=== PATIENT | female | born 1985 | race Caucasian/White ===

== ENCOUNTER 2016-03-11 23:16 | Emergency (ER) | payer SELFPAY ==
[~2016-03-11] VITALS: Ht 165.1 cm; Wt 87.0 kg
[~2016-03-11 23:16] MED LIST: MULT-506 PO
[2016-03-11 23:28] VITALS: TEMP 36.8; Ht 165.1 cm; Wt 87.0 kg
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
[2016-03-12] MEDS ORDERED: OXYCODONE/ACETAMINOPHEN 5-325 TAB PO ONE (00:15)
[2016-03-12] MEDS ORDERED: OXYC-57 PO (01:21)
[2016-03-12 01:30] VITALS: BP 138/89; PULSE 76; O2SAT 99
--- NOTE | 2016-03-12 09:17 | DIAGNOSTIC IMAGING REPORT ---
LEFT KNEE 2 VIEWS CLINICAL HISTORY: Fall with left knee pain. FINDINGS: AP and crosstable lateral views of the left knee are obtained. No prior studies are available for comparison at the time of dictation. The skeletal structures are well mineralized. No fracture is seen. The joint spaces of the knee are well-maintained. There is no joint effusion. Mild soft tissue swelling is noted. IMPRESSION: Mild soft tissue swelling with no radiographic evidence of fracture. Electronically signed by: Rupert Augustin M.D. 03/12/2016 9:15 AM Dictated Date/Time: 03/12/2016 9:14 AM
[2016-03-12] MEDS ORDERED: OXYC1TAB3 PO (09:39)
[2016-03-13] MEDS ORDERED: OXYC-57 PO (15:34)
--- NOTE | 2016-03-13 15:40 | EMERGENCY ROOM VISIT NOTE ---
ED Visit Note I was asked by the nursing staff to redo the patient's Percocet prescription. She needed the prescription sent to a different pharmacy. The same number of pills for the Percocet was placed but the prescription was sent to her preferred pharmacy. This was all discussed with the charge nurse and with the initial physician, Dr. Ortega.
== END 2016-03-12 01:36 | disposition home or self-care (01) ==
LOC: C.EDB 23:17 → C.EDC 03-12 01:36
DX: S83.92XA Sprain of unspecified site of left knee, initial encounter (principal); W01.0XXA Fall on same level from slipping, tripping and stumbling without subsequent striking against object, initial encounter; F17.210 Nicotine dependence, cigarettes, uncomplicated; Z83.3 Family history of diabetes mellitus; Z82.49 Family history of ischemic heart disease and other diseases of the circulatory system; Z82.0 Family history of epilepsy and other diseases of the nervous system

== ENCOUNTER 2022-12-12 07:45 | Inpatient (IN) ==
[2022-12-12] MEDS ORDERED: DINOPROSTONE 10 MG INSERT PV ONE (08:29)
[2022-12-12] MEDS ORDERED: OXYTOCIN 30 UNITS/NSS 30 UNITS/500 ML BAG IV PRN (08:29)
[2022-12-12] MEDS ORDERED: LIDOCAINE 1% LOCAL 20 ML VIAL INFIL PRN (08:29)
--- NOTE | 2022-12-12 08:33 | History & Physical Report ---
Date of Service December 12, 2022 Assessment & Plan (1) Gestational diabetes: (2) Obesity: (3) Chronic hypertension during , antepartum: Plan: 36 yo at 39 wks with CHTN, GDMA1, IOL at term VS Afebrile FHR reassuring GBS neg Cervix unfavorable, Plan to admit, monitor, labs, Cervical ripening with Cervidil Admission and Anticipated Discharge Date Admission Date: December 12, 2022 History of Present Illness Primary Care Provider: NO PCP Patient is a 36 yo at 39 wks with h/o CHTN, on Labetalol, GDMA1, Diet controlled, Obesity, here for scheduled IOL Had irregular contractions yesterday but they stopped. No LOF/VB +FM's GBS negative Last growth US was on 11/30 and was WNL Allergies Allergy/AdvReac Type Severity Reaction Status Date / Time Penicillins Allergy Severe hives, Verified 01/14/21 12:54 shortness of breath Home Medications Medication Instructions Recorded Confirmed Type prenat.vits,tanner,[id number] 1 tab PO QAM 01/12/21 12/12/22 History aspirin 81 mg chewable tablet 81 mg PO DAILY 12/12/22 12/12/22 History labetalol 100 mg tablet 100 mg PO BID 12/12/22 12/12/22 History vitamin B12 0.5 mg-folic acid 1 mg 1 tab PO DAILY 12/12/22 12/12/22 History tablet Patient History Medical History Gestational diabetes Obesity Surgical History History of dilatation and curettage History of tooth extraction all upper teeth removed Family History Other No family history of adverse response to anesthesia Social History Smoking Status: Former smoker Cigarettes Per Day: 3; Second Hand Exposure: No; Do You Dip or Chew Tobacco: No; Hx Alcohol Use: Yes (prior to was drinking) Alcohol type: other Hx Substance Use: No Preferred Language: Luxembourgish Communication Ability: Effective Fire Alarm Dispatcher Required: No Beliefs That Will Affect Care: None marital status: Current Living Situation: Spouse and Family Current Living Situation Comment: Lives with and daughter - 12 yo; 3 cats Other Information That Helps Us Care for You: No Feels Safe at Home: Yes Assistive Devices: None OB History FT in 2009 SAB in 2020 and 2 in 2021 COPYWRITER History No h/o STD's Review of Systems as per Subjective / HPI Physical Exam Constitutional: WD/WN, vitals as above Gastrointestinal (Abdomen): normal bowel sounds, soft, nontender, no hepatosplenomegaly (gravid) Genitourinary: normal external appearance OB Exam Abdomen: + vertex (confirmed with US) Manual OB Exam: + cervical dilation 1 cm, + cervical effacement 20% and + station high (POSTERIOR) OB Exam Monitor Tracing: + external uterine monitor used and + category I Results & Data Vital Signs (Past 12 Hours) Vital Signs Temp Pulse Resp BP 12/12/22 08:05 36.9 C 74 20 133/72 12/12/22 08:03 74 133/72
[2022-12-12 09:11] LABS: Hematocrit (blood only) 34.1 % (37.0-47.0); Hemoglobin 11.7 g/dl (12.0-16.0); Mean Corpuscular Hemoglobin 31.9 pg (25.0-34.0); Mean Corpuscular Hgb Conc 34.3 g/dL (32.0-36.0); Mean Corpuscular Volume 92.9 fL (80.0-100.0); Mean Platelet Volume 10.5 fL (9.4-12.4); Platelet Count 214 K/uL (130-400); RDW Coefficient of Variation 13.7 % (11.5-14.5); RDW Standard Deviation 46.6 fL (36.4-46.3); Red Blood Count 3.67 M/uL (4.20-5.40); White Blood Count 10.12 K/ul (4.8-10.8)
[2022-12-12 09:25] LABS: Albumin Level 3.3 gm/dl (3.4-5.0); BUN Creatinine Ratio 18.5 (10-20); Bilirubin,Total 0.3 mg/dl (0.2-1.0); Calcium 8.6 mg/dl (8.6-10.3); Est GFR (African American) 141.7 ml/min; Est GFR (Non-African American) 122.3 ml/min; Globulin 3.2 gm/dl (2.5-4.0); Potassium 3.8 mmol/L (3.5-5.1); Total Protein 6.5 gm/dl (6.0-8.3)
[2022-12-12] MEDS: CYANOCOBALAMIN (B-12) 500 MCG TABLET PO SCH (09:41)
[2022-12-12] MEDS: FOLIC ACID 1 MG TAB PO SCH (09:41)
[2022-12-12] MEDS: LABETALOL HCL 100 MG TAB PO SCH ×2 (09:55→20:51)
[2022-12-12] MEDS: PRENATAL VITAMIN 1 TAB PO SCH (09:55)
[2022-12-12] MEDS ORDERED: CALCIUM CARBONATE 500 MG CHEWABLE TAB ONE (14:43)
[2022-12-12] MEDS: LACTATED RINGER'S 1,000 ML IV PRN ×2 (18:30→22:01)
[2022-12-12] MEDS: BUTORPHANOL TARTRATE 1 MG/ML VIAL IV PRN ×2 (18:38→21:22)
[2022-12-12] MEDS ORDERED: CALCIUM CARBONATE 500 MG CHEWABLE TAB PO PRN (20:00)
--- NOTE | 2022-12-12 21:54 | Obstetrical Progress Note ---
Date of Service December 12, 2022 Assessment & Plan Admission and Anticipated Discharge Date Admission Date: December 12, 2022 Subjective Patient is reevaluated. She has been feeling contractions since 6:30 PM. No leakage of fluid or vaginal bleeding. Cervidil was removed cervix was still high checked by her nurse. Patient is disappointed that she has not changed despite she had too many contractions. She received Stadol 1 mg IV x2 and helped for pain. I checked her cervix and it is still posterior, 1 to 2 cm dilated, 30% effaced, softer than this morning, head is at -4 station. I was unable to feel the head in the morning and vertex was confirmed by bedside ultrasound. Discussed the findings induction of labor may take a day or 2 with ripening of cervix and starting labor. We discussed options of Cobb balloon mechanical dilatation with IV oxytocin. Patient desires to move around and does not want to be on oxytocin this early and needed to be in bed all the time. We discussed option of Cobb balloon and p.o. Cytotec and she accepted that. Plan to place Cobb balloon and start p.o. Cytotec once the contractions spaced out. heart rate category 1. Continue to monitor, All questions were answered. Results & Data Vital Signs (Past 12 Hours) Vital Signs Temp Pulse Resp BP 12/12/22 19:06 36.7 C 18 12/12/22 20:50 64 130/72 12/12/22 19:06 66 126/60 12/12/22 18:32 71 124/74 12/12/22 14:39 36.8 C 64 20 108/64 12/12/22 11:35 36.7 C 83 18 122/75
--- NOTE | 2022-12-12 22:13 | Obstetrical Progress Note ---
Date of Service December 12, 2022 Assessment & Plan Admission and Anticipated Discharge Date Admission Date: December 12, 2022 Subjective Patient placed in dorsal lithotomy position. Speculum was placed in the vagina and cervix was visualized. Cobb cath was inserted into the cervix and balloon was inflated, balloon would not stay inside and will come out. Unable to try again due to patient discomfort and patient declines to proceed with follow-up on insertion. She desires to take p.o. Cytotec for the rest of the night. heart rate category 1, Contractions spaced out to every 6 to 7 minutes, not painful anymore, Plan to continue with p.o. Cytotec and IV Stadol for pain and then epidural when regular contractions and cervical change starts, Oxytocin AROM when able, Continue to monitor. Results & Data Vital Signs (Past 12 Hours) Vital Signs Temp Pulse Resp BP 12/12/22 19:06 36.7 C 18 12/12/22 20:50 64 130/72 12/12/22 19:06 66 126/60 12/12/22 18:32 71 124/74 12/12/22 14:39 36.8 C 64 20 108/64 12/12/22 11:35 36.7 C 83 18 122/75
[2022-12-12] MEDS: miSOPROStoL 50 MCG TAB PO SCH (22:30)
[2022-12-13] MEDS ORDERED: OXYTOCIN 30 UNITS/NSS 30 UNITS/500 ML BAG IV PRN (00:58)
[2022-12-13] MEDS: miSOPROStoL 50 MCG TAB PO SCH ×4 (03:55→14:09)
[2022-12-13] MEDS: CYANOCOBALAMIN (B-12) 500 MCG TABLET PO SCH (08:58)
[2022-12-13] MEDS: LABETALOL HCL 100 MG TAB PO SCH ×2 (08:58→22:47)
[2022-12-13] MEDS: FOLIC ACID 1 MG TAB PO SCH (08:58)
--- NOTE | 2022-12-13 09:58 | Labor Progress Brief Note ---
Date of Service December 13, 2022 Assessment & Plan Admission and Anticipated Discharge Date Admission Date: December 12, 2022 Physical Exam Genitourinary: Speculum/Bimanual Exam: normal bimanual exam OB Exam Abdomen: + fundal height and + vertex Manual OB Exam: + cervical dilation fingertip, + cervical effacement 50% and + station high Cobb inserted into cervix with 35 ml. saline without difficulty Results & Data Vital Signs (Past 12 Hours) Vital Signs Temp Pulse Resp BP 12/13/22 07:35 36.8 C 62 20 122/70 12/13/22 07:40 62 122/70 12/13/22 04:02 68 134/62 12/12/22 23:01 36.7 C 62 18 131/63
[2022-12-13] MEDS: BUTORPHANOL TARTRATE 1 MG/ML VIAL IV PRN (11:29)
[2022-12-13] MEDS: PRENATAL VITAMIN 1 TAB PO SCH (11:38)
[2022-12-13] MEDS: LACTATED RINGER'S 1,000 ML IV PRN ×3 (11:52→21:02)
[2022-12-13] MEDS ORDERED: LIDOCAINE 2%/EPINEPHRINE 1:200,000 20 ML PF ONE (13:18)
[2022-12-13] MEDS ORDERED: ePHEDrine sulfate 50 MG/ML AMP ONE (13:18)
[2022-12-13] MEDS ORDERED: fentaNYL citrate PF 100 MCG/2 ML VIAL ONE (13:18)
[2022-12-13] MEDS ORDERED: SODIUM CHLORIDE 0.9% PF INJ 10 ML VIAL ONE (13:18)
[2022-12-13] MEDS ORDERED: BUPIVACAINE 0.25% PF 30 ML VIAL ONE (13:18)
[2022-12-13] MEDS ORDERED: fentaNYL 2MCG/ML ROPIVACAINE 1.25MG/ML 100 ML BAG EPI ONE (13:19)
--- NOTE | 2022-12-13 13:46 | Anesthesiology Consultation ---
Date of Service December 13, 2022 Assessment & Plan (1) Encounter for pre-operative examination: Chart Review Chart Review: Acceptable Risk for Labor Epidural History Height/Weight Height: 5 ft 7 in Weight: 110.223 kg Allergies Allergy/AdvReac Type Severity Reaction Status Date / Time Penicillins Allergy Severe hives, Verified 01/14/21 12:54 shortness of breath pertussis vaccine,adsorbed Allergy Severe Anaphylaxis Verified 12/12/22 09:09 tetanus and diphtheria Allergy Severe Anaphylaxis Verified 12/12/22 09:09 toxoids Medications Home Medications Medication Instructions Recorded Confirmed Last Taken prenat.vits,tanner,[id number]-[id number]-[id number] 1 tab PO QAM 01/12/21 12/12/22 12/12/22 aspirin 81 mg chewable tablet 81 mg PO DAILY 12/12/22 12/12/22 12/12/22 labetalol 100 mg tablet 100 mg PO BID 12/12/22 12/12/22 12/12/22 vitamin B12 0.5 mg-folic acid 1 mg 1 tab PO DAILY 12/12/22 12/12/22 12/11/22 tablet Active Medications Generic Name Dose Route Start Last Admin Trade Name Freq PRN Reason Stop Dose Admin Butorphanol Tartrate 1 mg 12/12/22 09:43 12/13/22 11:29 Butorphanol Tartrate 1 Mg/Ml Vial IV 01/11/23 09:42 1 mg Q3HWA PRN Administration Pain Cyanocobalamin 500 mcg 12/12/22 09:00 12/13/22 08:58 Cyanocobalamin (B-12) 500 Mcg Tablet PO 01/11/23 08:59 500 mcg DAILY CAT Administration Protocol Folic Acid 1 mg 12/12/22 09:00 12/13/22 08:58 Folic Acid 1 Mg Tab PO 01/11/23 08:59 1 mg DAILY CAT Administration Protocol Lactated Ringer's 1,000 mls @ 150 mls/hr 12/12/22 08:29 12/13/22 13:20 Lr IV 12/14/22 08:28 999 mls/hr .Q6H40M PRN Infusion L&D Protocol Protocol Oxytocin 30 units in 500 mls @ 6 mls/hr 12/13/22 00:58 12/13/22 13:00 Pitocin IV 12/15/22 00:57 0.36 units/hr .Q24H PRN 6 mls/hr Labor Induction/Augmentation Titration Protocol 0.36 UNITS/HR Labetalol HCl 100 mg 12/12/22 09:00 12/13/22 08:58 Labetalol Hcl 100 Mg Tab PO 01/11/23 08:59 100 mg BID CAT Administration Misoprostol 50 mcg 12/12/22 22:30 12/13/22 11:38 Misoprostol 50 Mcg Tab PO 01/11/23 22:29 Not Given Q4 CAT Prenat Multivit/Matchbook Assembler/Iron/Folic Ac 1 tab 12/12/22 09:00 12/13/22 11:38 Vitamin 1 Tab PO 01/11/23 08:59 Not Given QAM CAT Past Medical History Medical History Chronic hypertension Gestational diabetes Obesity Exercise / Class Metabolic Activity II 4-5 Yardwork/Stairs/Walk up hill Past Family History Family History Other No family history of adverse response to anesthesia Past Surgical History Surgical History History of dilatation and curettage History of tooth extraction all upper teeth removed Social History Smoking Status: Former smoker tobacco type: cigarettes Smoking cigarettes per day: 3 Do You Dip or Chew Tobacco: No Hx Alcohol Use: Yes (prior to was drinking) Alcohol type: other alcohol intake frequency: a few times a month Hx Substance Use: No substance use type: does not use Physical Exam Vital Signs Last Vital Signs Temp 36.6 C 12/13/22 13:00 Pulse 65 12/13/22 12:26 Resp 20 12/13/22 13:00 BP 113/56 L 12/13/22 12:26 Testing Laboratory Results 12/12/22 08:47 12/12/22 08:47 Blood Type A Positive 12/12/22 08:47 Antibody Screen NEGATIVE 12/12/22 08:47
[2022-12-13] MEDS ORDERED: BUPIVACAINE 0.25% PF 30 ML VIAL EPI PRN (14:24)
[2022-12-13] MEDS ORDERED: ROPIVACAINE 0.5% PF 5 MG/ML 20 ML VIAL EPI PRN (14:24)
[2022-12-13] MEDS ORDERED: fentaNYL citrate PF 100 MCG/2 ML VIAL EPI PRN (14:24)
[2022-12-13] MEDS ORDERED: LIDOCAINE 2% MPF LOCAL 5 ML VIAL EPI PRN (14:24)
[2022-12-13] MEDS ORDERED: NALOXONE HCL 0.4 MG/1 ML VIAL/CARP IV PRN (14:24)
[2022-12-13] MEDS ORDERED: SODIUM CHLORIDE 0.9% PF INJ 10 ML VIAL EPI PRN (14:24)
[2022-12-13] MEDS ORDERED: ePHEDrine sulfate 50 MG/ML AMP IV PRN (14:24)
[2022-12-13] MEDS ORDERED: ONDANSETRON INJ 2 MG/ML 2 ML VIAL IV PRN (14:24)
[2022-12-13] MEDS ORDERED: LIDOCAINE 2%/EPINEPHRINE 1:200,000 20 ML PF EPI STA (14:24)
[2022-12-13] MEDS ORDERED: NALOXONE HCL 1 MG in SODIUM CHLORIDE 0.9% 1,000 ML IV PRN (14:24)
[2022-12-13] MEDS ORDERED: BUPIVACAINE 0.25% PF 30 ML VIAL EPI STA (14:24)
[2022-12-13] MEDS ORDERED: fentaNYL 2MCG/ML ROPIVACAINE 1.25MG/ML 100 ML BAG EPI PRN (14:24)
[2022-12-13] MEDS ORDERED: fentaNYL citrate PF 100 MCG/2 ML VIAL EPI STA (14:24)
[2022-12-13] MEDS ORDERED: SODIUM CHLORIDE 0.9% PF INJ 10 ML VIAL EPI STA (14:24)
--- NOTE | 2022-12-13 18:26 | Labor Progress Brief Note ---
Date of Service December 13, 2022 Assessment & Plan Admission and Anticipated Discharge Date Admission Date: December 12, 2022 Physical Exam Genitourinary: Manual OB Exam: + cervical dilation 4 cm, + cervical effacement 50% and 60%, + station high and + amniotic fluid clear OB Exam Monitor Tracing: + external FHT monitor used, + external uterine monitor used, + category I and + normal FHT variability AROM of forebag with Amni-hook clear fluid Results & Data Vital Signs (Past 12 Hours) Vital Signs Temp Pulse Resp BP Pulse Ox 12/13/22 07:35 36.8 C 62 20 122/70 12/13/22 18:22 64 98 12/13/22 18:19 59 L 126/76 12/13/22 18:17 55 L 98 12/13/22 18:12 54 L 98 12/13/22 18:07 50 L 98 12/13/22 18:04 54 L 115/66 12/13/22 18:02 53 L 97 12/13/22 17:57 52 L 97 12/13/22 17:52 53 L 97 12/13/22 17:49 52 L 124/67 12/13/22 17:47 57 L 97 12/13/22 17:42 51 L 98 12/13/22 17:37 55 L 99 12/13/22 17:35 52 L 125/63 12/13/22 17:32 54 L 97 12/13/22 17:27 54 L 97 12/13/22 17:22 53 L 97 12/13/22 17:20 54 L 127/62 12/13/22 17:17 55 L 97 12/13/22 17:12 55 L 96 12/13/22 17:07 54 L 98 12/13/22 17:04 56 L 115/58 L 12/13/22 17:02 54 L 97 12/13/22 16:57 58 L 97 12/13/22 16:52 55 L 97 12/13/22 16:50 53 L 120/56 L 12/13/22 16:47 61 97 12/13/22 16:42 66 97 12/13/22 16:37 55 L 97 12/13/22 16:34 52 L 130/71 12/13/22 16:32 51 L 97 12/13/22 16:27 60 98 12/13/22 16:22 52 L 97 12/13/22 16:19 53 L 129/65 12/13/22 16:17 58 L 97 12/13/22 16:12 53 L 97 12/13/22 16:07 54 L 97 12/13/22 16:05 59 L 115/56 L 12/13/22 16:02 62 98 12/13/22 15:57 70 97 12/13/22 15:52 56 L 94 12/13/22 15:50 55 L 136/68 12/13/22 15:47 56 L 95 12/13/22 15:42 51 L 95 12/13/22 15:40 56 L 94 12/13/22 15:37 54 L 95 12/13/22 15:35 56 L 126/67 12/13/22 15:32 55 L 96 12/13/22 15:27 53 L 18 95 12/13/22 15:00 20 12/13/22 15:22 54 L 95 12/13/22 15:19 54 L 125/68 12/13/22 15:17 55 L 20 95 12/13/22 15:12 61 96 12/13/22 15:07 53 L 96 12/13/22 15:05 56 L 128/64 12/13/22 15:02 55 L 96 12/13/22 14:57 54 L 96 12/13/22 14:52 52 L 95 12/13/22 14:48 54 L 129/71 12/13/22 14:47 54 L 96 12/13/22 14:45 54 L 18 118/72 12/13/22 14:42 54 L 18 96 12/13/22 14:39 54 L 120/76 12/13/22 14:37 62 18 97 12/13/22 14:33 56 L 115/67 12/13/22 14:32 54 L 97 12/13/22 14:31 55 L 18 126/75 12/13/22 14:29 54 L 131/80 12/13/22 14:27 96 12/13/22 14:27 54 L 12/13/22 14:27 52 L 131/82 12/13/22 14:25 56 L 128/77 12/13/22 14:22 55 L 97 12/13/22 14:17 61 98 12/13/22 14:12 66 99 10/18/23 14:11 64 91 12/13/22 14:07 60 99 12/13/22 13:57 67 133/70 12/13/22 13:00 20 12/13/22 13:00 36.6 C 20 12/13/22 12:26 65 113/56 L 12/13/22 11:25 61 125/74 12/13/22 10:06 64 133/70 12/13/22 07:40 62 122/70
[2022-12-13] MEDS ORDERED: SODIUM CHLORIDE 0.9% 250 ML IV PRN (19:50)
--- NOTE | 2022-12-13 22:29 | Labor Progress Brief Note ---
Date of Service December 13, 2022 Assessment & Plan Admission and Anticipated Discharge Date Admission Date: December 12, 2022 Physical Exam Genitourinary: Manual OB Exam: + cervical dilation 6 cm and 7 cm, + cervical effacement 90% and + station -1 OB Exam Monitor Tracing: + external FHT monitor used, + external uterine monitor used, + category I and + normal FHT variability Results & Data Vital Signs (Past 12 Hours) Vital Signs Temp Pulse Resp BP Pulse Ox 12/13/22 19:20 36.9 C 18 12/13/22 22:27 58 L 98 12/13/22 22:22 66 97 12/13/22 22:17 63 98 12/13/22 22:12 62 98 12/13/22 22:07 65 97 12/13/22 22:02 71 97 12/13/22 22:01 62 119/63 12/13/22 21:57 61 97 12/13/22 21:54 63 118/59 L 12/13/22 21:52 61 97 12/13/22 21:47 69 97 12/13/22 21:42 57 L 96 12/13/22 21:37 58 L 97 12/13/22 21:32 72 97 12/13/22 21:27 70 97 12/13/22 21:22 55 L 96 12/13/22 21:19 56 L 116/68 12/13/22 21:17 58 L 98 12/13/22 21:12 59 L 97 12/13/22 21:07 62 98 12/13/22 21:02 57 L 110/65 97 12/13/22 20:57 56 L 98 12/13/22 20:52 55 L 98 12/13/22 20:47 57 L 98 12/13/22 20:45 53 L 113/60 12/13/22 20:43 18 12/13/22 20:43 36.8 C 18 12/13/22 20:42 52 L 98 12/13/22 20:37 52 L 99 12/13/22 20:32 56 L 99 12/13/22 20:27 65 99 12/13/22 20:22 60 98 12/13/22 20:17 56 L 98 12/13/22 20:12 61 98 12/13/22 20:11 59 L 135/65 12/13/22 20:07 56 L 99 12/13/22 20:02 63 100 12/13/22 19:57 56 L 98 12/13/22 19:52 53 L 97 12/13/22 19:47 66 98 12/13/22 19:42 52 L 97 12/13/22 19:37 58 L 97 12/13/22 19:32 97 12/13/22 19:32 63 12/13/22 19:32 58 L 136/69 12/13/22 19:27 52 L 98 12/13/22 19:22 53 L 98 12/13/22 19:17 56 L 97 12/13/22 19:12 63 100 12/13/22 19:07 64 98 12/13/22 19:05 56 L 130/63 12/13/22 19:02 60 98 12/13/22 18:57 59 L 98 12/13/22 18:52 55 L 98 12/13/22 18:49 53 L 116/62 12/13/22 18:47 57 L 18 98 12/13/22 18:42 55 L 98 12/13/22 18:37 55 L 98 12/13/22 18:34 54 L 119/65 12/13/22 18:32 56 L 98 12/13/22 18:27 60 99 12/13/22 18:22 64 98 12/13/22 18:19 59 L 126/76 12/13/22 18:17 55 L 98 12/13/22 18:12 54 L 98 12/13/22 18:07 50 L 98 12/13/22 18:04 54 L 115/66 12/13/22 18:02 53 L 97 12/13/22 17:57 52 L 97 12/13/22 17:52 53 L 97 12/13/22 17:49 52 L 124/67 12/13/22 17:47 36.7 C 57 L 18 97 12/13/22 17:42 51 L 98 12/13/22 17:37 55 L 99 12/13/22 17:35 52 L 125/63 12/13/22 17:32 54 L 97 12/13/22 17:27 54 L 97 12/13/22 17:22 53 L 97 12/13/22 17:20 54 L 127/62 12/13/22 17:17 55 L 97 12/13/22 17:12 55 L 96 12/13/22 17:07 54 L 98 12/13/22 17:04 56 L 115/58 L 12/13/22 17:02 54 L 97 12/13/22 16:57 58 L 97 12/13/22 16:52 55 L 97 12/13/22 16:50 53 L 120/56 L 12/13/22 16:47 61 18 97 12/13/22 16:42 66 97 12/13/22 16:37 55 L 97 12/13/22 16:34 52 L 130/71 12/13/22 16:32 51 L 97 12/13/22 16:27 60 98 12/13/22 16:22 52 L 97 12/13/22 16:19 53 L 129/65 12/13/22 16:17 58 L 97 12/13/22 16:12 53 L 97 12/13/22 16:07 54 L 97 12/13/22 16:05 59 L 115/56 L 12/13/22 16:02 62 98 12/13/22 15:57 70 97 12/13/22 15:52 56 L 94 12/13/22 15:50 36.6 C 55 L 18 136/68 12/13/22 15:47 56 L 95 12/13/22 15:42 51 L 95 12/13/22 15:40 56 L 94 12/13/22 15:37 54 L 95 12/13/22 15:35 56 L 126/67 12/13/22 15:32 55 L 96 12/13/22 15:27 53 L 18 95 12/13/22 15:00 20 12/13/22 15:22 54 L 95 12/13/22 15:19 54 L 125/68 12/13/22 15:17 55 L 20 95 12/13/22 15:12 61 96 12/13/22 15:07 53 L 96 12/13/22 15:05 56 L 128/64 12/13/22 15:02 55 L 96 12/13/22 14:57 54 L 96 12/13/22 14:52 52 L 95 12/13/22 14:48 54 L 129/71 12/13/22 14:47 54 L 96 12/13/22 14:45 54 L 18 118/72 12/13/22 14:42 54 L 18 96 12/13/22 14:39 54 L 120/76 12/13/22 14:37 62 18 97 12/13/22 14:33 56 L 115/67 12/13/22 14:32 54 L 97 12/13/22 14:31 55 L 18 126/75 12/13/22 14:29 54 L 131/80 12/13/22 14:27 96 12/13/22 14:27 54 L 12/13/22 14:27 52 L 131/82 12/13/22 14:25 56 L 128/77 12/13/22 14:22 55 L 97 12/13/22 14:17 61 98 12/13/22 14:12 66 99 12/13/22 14:11 64 91 12/13/22 14:07 60 99 12/13/22 13:57 67 133/70 12/13/22 13:00 20 12/13/22 13:00 36.6 C 20 12/13/22 12:26 65 113/56 L 12/13/22 11:25 61 125/74
[2022-12-14] MEDS ORDERED: HYDROCORTISONE ACETATE 25 MG SUPP PR PRN (00:19)
[2022-12-14] MEDS ORDERED: bisacodyL 10 MG SUPP PR PRN (00:19)
[2022-12-14] MEDS ORDERED: DIPHTHERIA/TETANUS/PERTUSSIS Vaccine (Tdap, Age 7+yrs) 0.5mL SYR/VL IM ONE (00:19)
[2022-12-14] MEDS ORDERED: ACETAMINOPHEN 325 MG TAB PO PRN (00:19)
[2022-12-14] MEDS ORDERED: BENZOCAINE 20% SPRY 85 APPLN/85 GM CAN EXT PRN (00:19)
[2022-12-14] MEDS ORDERED: OXYTOCIN 30 UNITS/NSS 30 UNITS/500 ML BAG IV PRN (00:19)
[2022-12-14] MEDS ORDERED: DOCUSATE SODIUM 100 MG CAP PO ONE (00:24)
--- NOTE | 2022-12-14 00:24 | Delivery Summary ---
Vaginal Delivery Summary Date of Service December 14, 2022 Vaginal Delivery Summary live male NHI over intact perineum with nuchal cord x2 reduced at delivery of head. Delayed cord clamping followed by cord blood and spontaneous delivery of intact placenta. No tears. EBL 100 ml. Final sponge and instrument count are correct. Mom and baby stable.
[2022-12-14] MEDS: IBUPROFEN 600 MG TAB PO PRN ×5 (01:02→23:53)
[2022-12-14] MEDS ORDERED: METHYLERGONOVINE MALEATE 0.2 MG/ML AMP IM STA (01:59)
[2022-12-14] MEDS: miSOPROStoL 50 MCG TAB PO SCH (05:07)
--- NOTE | 2022-12-14 07:03 | Anesthesia Procedure Note ---
Date of Service December 14, 2022 Anesthesia Post Epidural Note Vital Signs Vital Signs: Temp Pulse Resp BP Pulse Ox 98.1 F 65 18 144/63 H 94 12/13/22 22:49 12/14/22 02:54 12/13/22 22:49 12/14/22 02:54 12/14/22 02:52 Pain Intensity Abdomen: Pain Intensity: 8 Notes Mental Status: alert / awake / arousable and participated in evaluation Nausea / Vomiting: adequately controlled Pain: adequately controlled Airway Patency, RR, SpO2: stable & adequate BP & HR: stable & adequate Hydration State: stable & adequate Neuraxial Anesthesia: was administered and sensory block is resolving Anesthetic Complications: no major complications apparent and Pt Satisfied with anesthetic care Epidural: Removed without complications and With tip intact
[2022-12-14] MEDS: PRENATAL VITAMIN 1 TAB PO SCH (08:41)
[2022-12-14] MEDS: DOCUSATE SODIUM 100 MG CAP PO SCH ×2 (08:41→20:46)
[2022-12-14] MEDS: FERROUS SULFATE 325 MG TAB PO SCH (08:41)
[2022-12-14] MEDS ORDERED: DOCUSATE SODIUM 100 MG CAP PO SCH (09:00)
[2022-12-14] MEDS: LABETALOL HCL 100 MG TAB PO SCH ×2 (10:13→20:19)
--- NOTE | 2022-12-14 16:42 | Obstetrical Progress Note ---
Date of Service December 14, 2022 Assessment & Plan Admission and Anticipated Discharge Date Admission Date: December 12, 2022 Subjective Patient is seen and examined. She felt feverish with chills. Temp was 37.7 C Ambulating without dizziness Voiding without difficulty Tolerating regular diet with out N&V Bleeding is minimal No fever/ chills/ CP/ SOB/ N&V/ Leg pain Breast feeding without problems Vital Signs Temp Pulse Resp BP O2 Del Method 12/14/22 16:20 37.7 C H 12/14/22 15:04 37.4 C 84 16 133/70 Room Air 12/14/22 13:10 36.9 C 70 16 132/82 Room Air 12/14/22 07:30 36.7 C 60 16 142/80 H Room Air CBC ordered, pending PE: General: Alert, orientedx3, NAD Abd: soft, NT, fundus firm, tender ?, below Umbilicus Perineum intact, Lochia rubra minimal Ext; NT, BL edema on dorsum of feet, Homans sign neg/ neg AP: 36 yo s/p , ppd# 0 after IOL for 2 days VSS low grade temp with symptom of chills, otherwise, doing well Run CBC, Lactate, Baby is doing well Continue to monitor All questions were answered Results & Data Vital Signs (Past 12 Hours) Vital Signs Temp Pulse Resp BP O2 Del Method 12/14/22 16:20 37.7 C H 12/14/22 15:04 37.4 C 84 16 133/70 Room Air 12/14/22 13:10 36.9 C 70 16 132/82 Room Air 12/14/22 07:30 36.7 C 60 16 142/80 H Room Air
[2022-12-14 16:57] LABS: Basophils # (auto) 0.01 K/uL (0.00-0.20); Basophils % (auto) 0.1 %; Eosinophils # (auto) 0.01 K/uL (0.00-0.50); Eosinophils % (auto) 0.1 %; Hematocrit (blood only) 32.8 % (37.0-47.0); Hemoglobin 10.9 g/dl (12.0-16.0); Immature Granulocytes # (auto) 0.05 K/uL (0.01-0.20); Immature Granulocytes % (auto) 0.5 %; Lymphocytes # (auto) 0.95 K/uL (1.20-3.40); Lymphocytes % (auto) 9.6 %; Mean Corpuscular Hemoglobin 31.8 pg (25.0-34.0); Mean Corpuscular Hgb Conc 33.2 g/dL (32.0-36.0); Mean Corpuscular Volume 95.6 fL (80.0-100.0); Mean Platelet Volume 10.6 fL (9.4-12.4); Monocytes # (auto) 0.39 K/uL (0.11-0.59); Monocytes % (auto) 3.9 %; Neutrophils % (auto) 85.8 %; Platelet Count 170 K/uL (130-400); RDW Coefficient of Variation 13.6 % (11.5-14.5); Red Blood Count 3.43 M/uL (4.20-5.40); White Blood Count 9.91 K/ul (4.8-10.8)
--- NOTE | 2022-12-14 23:32 | Obstetrical Progress Note ---
Date of Service December 14, 2022 Assessment & Plan Admission and Anticipated Discharge Date Admission Date: December 12, 2022 Subjective She has been afebrile Labs WNL Lab Results 12/12/22 12/12/22 12/12/22 Range/Units 08:47 08:47 08:47 WBC 10.12 (4.8-10.8) K/ul RBC 3.67 L (4.20-5.40) M/uL Hgb 11.7 L (12.0-16.0) g/dl Hct 34.1 L (37.0-47.0) % MCV 92.9 (80.0-100.0) fL MCH 31.9 (25.0-34.0) pg MCHC 34.3 (32.0-36.0) g/dL RDW Std Deviation 46.6 H (36.4-46.3) fL RDW Coeff of Donell 13.7 (11.5-14.5) % Plt Count 214 (130-400) K/uL MPV 10.5 (9.4-12.4) fL Immature Gran % (Auto) % Neut % (Auto) % Lymph % (Auto) % [place] % (Auto) % Eos % (Auto) % Baso % (Auto) % Neut # (Auto) (1.40-6.50) K/uL Lymph # (Auto) (1.20-3.40) K/uL [place] # (Auto) (0.11-0.59) K/uL Eos # (Auto) (0.00-0.50) K/uL Baso # (Auto) (0.00-0.20) K/uL Immature Gran # (Auto) (0.01-0.20) K/uL Sodium 135 L (136-145) mmol/L Potassium 3.8 (3.5-5.1) mmol/L Chloride 107 (98-107) mmol/L Carbon Dioxide 21 (21-32) mmol/L Anion Gap 7 (3-11) BUN 10 (6-23) mg/dl Creatinine 0.54 L (0.6-1.2) mg/dl Est Cr Clr Drug Dosing 186.0 ml/min Est GFR ( Amer) 141.7 ml/min Est GFR (Non-Af Amer) 122.3 ml/min BUN/Creatinine Ratio 18.5 (10-20) Glucose 89 (70-99(Fasting)) mg/dl POC Glucose (70-99) mg/dl Lactate (0.4-2.0) mmol/L Calcium 8.6 (8.6-10.3) mg/dl Total Bilirubin 0.3 (0.2-1.0) mg/dl AST 13 (13-39) U/L ALT 12 (7-52) U/L Alkaline Phosphatase 107 H (34-104) U/L Total Protein 6.5 (6.0-8.3) gm/dl Albumin 3.3 L (3.4-5.0) gm/dl Globulin 3.2 (2.5-4.0) gm/dl Albumin/Globulin Ratio 1.0 (0.9-2) Blood Type A Positive Antibody Screen NEGATIVE 12/12/22 12/12/22 12/12/22 Range/Units 12:16 16:48 20:54 WBC (4.8-10.8) K/ul RBC (4.20-5.40) M/uL Hgb (12.0-16.0) g/dl Hct (37.0-47.0) % MCV (80.0-100.0) fL MCH (25.0-34.0) pg MCHC (32.0-36.0) g/dL RDW Std Deviation (36.4-46.3) fL RDW Coeff of Donell (11.5-14.5) % Plt Count (130-400) K/uL MPV (9.4-12.4) fL Immature Gran % (Auto) % Neut % (Auto) % Lymph % (Auto) % [place] % (Auto) % Eos % (Auto) % Baso % (Auto) % Neut # (Auto) (1.40-6.50) K/uL Lymph # (Auto) (1.20-3.40) K/uL [place] # (Auto) (0.11-0.59) K/uL Eos # (Auto) (0.00-0.50) K/uL Baso # (Auto) (0.00-0.20) K/uL Immature Gran # (Auto) (0.01-0.20) K/uL Sodium (136-145) mmol/L Potassium (3.5-5.1) mmol/L Chloride (98-107) mmol/L Carbon Dioxide (21-32) mmol/L Anion Gap (3-11) BUN (6-23) mg/dl Creatinine (0.6-1.2) mg/dl Est Cr Clr Drug Dosing ml/min Est GFR ( Amer) ml/min Est GFR (Non-Af Amer) ml/min BUN/Creatinine Ratio (10-20) Glucose (70-99(Fasting)) mg/dl POC Glucose 116 H 88 96 (70-99) mg/dl Lactate (0.4-2.0) mmol/L Calcium (8.6-10.3) mg/dl Total Bilirubin (0.2-1.0) mg/dl AST (13-39) U/L ALT (7-52) U/L Alkaline Phosphatase (34-104) U/L Total Protein (6.0-8.3) gm/dl Albumin (3.4-5.0) gm/dl Globulin (2.5-4.0) gm/dl Albumin/Globulin Ratio (0.9-2) Blood Type Antibody Screen 12/13/22 12/14/22 12/14/22 Range/Units 21:09 16:37 16:37 WBC 9.91 (4.8-10.8) K/ul RBC 3.43 L (4.20-5.40) M/uL Hgb 10.9 L (12.0-16.0) g/dl Hct 32.8 L (37.0-47.0) % MCV 95.6 (80.0-100.0) fL MCH 31.8 (25.0-34.0) pg MCHC 33.2 (32.0-36.0) g/dL RDW Std Deviation 48.0 H (36.4-46.3) fL RDW Coeff of Donell 13.6 (11.5-14.5) % Plt Count 170 (130-400) K/uL MPV 10.6 (9.4-12.4) fL Immature Gran % (Auto) 0.5 % Neut % (Auto) 85.8 % Lymph % (Auto) 9.6 % [place] % (Auto) 3.9 % Eos % (Auto) 0.1 % Baso % (Auto) 0.1 % Neut # (Auto) 8.50 H (1.40-6.50) K/uL Lymph # (Auto) 0.95 L (1.20-3.40) K/uL [place] # (Auto) 0.39 (0.11-0.59) K/uL Eos # (Auto) 0.01 (0.00-0.50) K/uL Baso # (Auto) 0.01 (0.00-0.20) K/uL Immature Gran # (Auto) 0.05 (0.01-0.20) K/uL Sodium (136-145) mmol/L Potassium (3.5-5.1) mmol/L Chloride (98-107) mmol/L Carbon Dioxide (21-32) mmol/L Anion Gap (3-11) BUN (6-23) mg/dl Creatinine (0.6-1.2) mg/dl Est Cr Clr Drug Dosing ml/min Est GFR ( Amer) ml/min Est GFR (Non-Af Amer) ml/min BUN/Creatinine Ratio (10-20) Glucose (70-99(Fasting)) mg/dl POC Glucose 103 H (70-99) mg/dl Lactate 1.0 (0.4-2.0) mmol/L Calcium (8.6-10.3) mg/dl Total Bilirubin (0.2-1.0) mg/dl AST (13-39) U/L ALT (7-52) U/L Alkaline Phosphatase (34-104) U/L Total Protein (6.0-8.3) gm/dl Albumin (3.4-5.0) gm/dl Globulin (2.5-4.0) gm/dl Albumin/Globulin Ratio (0.9-2) Blood Type Antibody Screen Results & Data Vital Signs (Past 12 Hours) Vital Signs Temp Pulse Pulse Resp BP Pulse Ox O2 Del Method 12/14/22 20:15 36.6 C 77 18 119/65 97 Room Air 12/14/22 17:19 36.9 C 12/14/22 16:20 37.7 C H 12/14/22 15:04 37.4 C 84 16 133/70 Room Air 12/14/22 13:10 36.9 C 70 16 132/82 Room Air
[2022-12-15] MEDS ORDERED: GENTAMICIN CONSULT ACTIVE PRN (00:09)
--- NOTE | 2022-12-15 00:18 | Obstetrical Progress Note ---
Date of Service December 15, 2022 Assessment & Plan Admission and Anticipated Discharge Date Admission Date: December 12, 2022 Subjective Patient is reevaluated. She does not feel well, she c/o abdominal pain, right on uterine fundus and feels hot flushed. Was nauseous earlier Urination not comfortable? Temp is 36.8 C but definitely feels warm on whole body skin and red flushed cheeks Abd: soft, tender on fundus, no rebound VB is minimal, perineum intact Plan to treat for endometritis/ UTI, repeat labs in am She has severe allergy to PCN, has taken Clindamycin and Macrobid before with no reaction Results & Data Vital Signs (Past 12 Hours) Vital Signs Temp Pulse Pulse Resp BP Pulse Ox O2 Del Method 12/14/22 23:20 36.9 C 71 18 121/69 97 Room Air 12/14/22 20:15 36.6 C 77 18 119/65 97 Room Air 12/14/22 17:19 36.9 C 12/14/22 16:20 37.7 C H 12/14/22 15:04 37.4 C 84 16 133/70 Room Air 12/14/22 13:10 36.9 C 70 16 132/82 Room Air
[2022-12-15] MEDS: CLINDAMYCIN/D5W 900 MG/50 ML BAG IV SCH ×3 (01:16→17:16)
[2022-12-15] MEDS: oxyCODONE/ACETAMINOPHEN 5mg/325mg TAB PO PRN ×6 (01:45→23:34)
[2022-12-15] MEDS: GENTAMICIN SULFATE 550 MG in DEXTROSE 5% 100 ML IV SCH (01:46)
[2022-12-15 02:43] LABS: Appearance Urine Cloudy (Clear); Bilirubin Urine Negative (Negative); Blood Urine 3+ (Negative); Color Urine Red; Glucose Urine UA Negative (Negative); Ketones Urine Negative (Negative); Leukocyte Esterase Urine 1+ (Negative); Nitrite Urine Negative (Negative); Protein Urine 3+ (Negative); Specific Gravity Urine 1.025 (1.000-1.030); Urobilinogen Urine Negative (Negative); pH Urine 6.5 (4.5-7.5)
[2022-12-15 02:57] LABS: Bacteria Urine Negative (Negative); RBC Urine >30 /hpf (0-4); WBC Urine >30 /hpf (0-5)
[2022-12-15 06:16] LABS: Basophils # (auto) 0.01 K/uL (0.00-0.20); Basophils % (auto) 0.1 %; Eosinophils # (auto) 0.03 K/uL (0.00-0.50); Eosinophils % (auto) 0.4 %; Hematocrit (blood only) 31.1 % (37.0-47.0); Hemoglobin 10.1 g/dl (12.0-16.0); Immature Granulocytes # (auto) 0.04 K/uL (0.01-0.20); Immature Granulocytes % (auto) 0.6 %; Lymphocytes # (auto) 1.72 K/uL (1.20-3.40); Mean Corpuscular Hemoglobin 31.6 pg (25.0-34.0); Mean Corpuscular Hgb Conc 32.5 g/dL (32.0-36.0); Mean Corpuscular Volume 97.2 fL (80.0-100.0); Mean Platelet Volume 10.8 fL (9.4-12.4); Monocytes # (auto) 0.55 K/uL (0.11-0.59); Neutrophils # (auto) 4.53 K/uL (1.40-6.50); Neutrophils % (auto) 65.9 %; Platelet Count 138 K/uL (130-400); RDW Standard Deviation 49.5 fL (36.4-46.3); White Blood Count 6.88 K/ul (4.8-10.8)
[2022-12-15 06:29] LABS: Albumin Globulin Ratio 1.1 (0.9-2); Albumin Level 2.7 gm/dl (3.4-5.0); BUN Creatinine Ratio 13.7 (10-20); Bilirubin,Total 0.2 mg/dl (0.2-1.0); Calcium 8.1 mg/dl (8.6-10.3); Est GFR (African American) 144.4 ml/min; Est GFR (Non-African American) 124.6 ml/min; Globulin 2.5 gm/dl (2.5-4.0); Total Protein 5.2 gm/dl (6.0-8.3)
[2022-12-15] MEDS: FERROUS SULFATE 325 MG TAB PO SCH (07:27)
[2022-12-15] MEDS: PRENATAL VITAMIN 1 TAB PO SCH (07:28)
[2022-12-15] MEDS: IBUPROFEN 600 MG TAB PO PRN ×4 (07:28→23:34)
[2022-12-15] MEDS: DOCUSATE SODIUM 100 MG CAP PO SCH ×2 (07:28→19:58)
--- NOTE | 2022-12-15 08:56 | Pharmacy Report ---
Pharmacy PK ABX Note - Date of Service December 15, 2022 - Assessment and Plan Assessment 36 year old F day #1 receiving empiric gentamicin and clindamycin for concern of endometritis/UTI. Pertinent microbiologic data includes: urine culture pending. Patient afebrile, but per documentation patient feels warm on whole body to touch w/ red flushed cheeks. Severe penicillin allergy (hives/shortness of breath) noted. Plan Gentamicin * Patient meets criteria for extended-interval aminoglycoside dosing * A dose of 550 mg (5 mg/kg of actual body weight) IV every 24 hours * Gentamicin levels are generally not necessary for short course therapy < 72 hours * If therapy is to extend beyond 72 hours, will order trough level 30 minutes prior to dose Clindamycin * 900 mg IV q8h - appropriate, no change Pharmacy will continue to follow and will adjust dose/frequency as necessary. Thank you.
[2022-12-15] MEDS: LABETALOL HCL 100 MG TAB PO SCH ×2 (09:48→20:21)
--- NOTE | 2022-12-15 10:58 | Obstetrical Progress Note ---
Date of Service December 15, 2022 Subjective Ambulation: ambulating normally Voiding: no voiding problems Passing Gas:: Yes Diet Tolerance:: regular diet Lochia:: Small Feeding Type:: breast feeding Current Pain Level(1-10): 0 doing well Physical Exam Constitutional WD/WN, vitals as above Gastrointestinal (Abdomen) Inspection/Auscultation: abdomen normal to inspection Musculoskeletal Extremities: extremities normal to inspection Skin no rashes, warm and dry Neurologic patellar DTR's 2+ bilat, sensation intact Psychiatric A+Ox3, euthymic affect Results & Data Vital Signs (Past 12 Hours) Vital Signs Temp Pulse Pulse Resp BP Pulse Ox O2 Del Method 12/15/22 09:46 73 116/76 12/15/22 07:30 36.4 C L 70 14 104/69 97 Room Air 12/15/22 03:05 36.6 C 64 18 107/71 97 Room Air 12/14/22 23:20 36.9 C 71 18 121/69 97 Room Air Laboratory Results 12/12/22 12/12/22 12/12/22 08:47 08:47 08:47 WBC 10.12 RBC 3.67 L Hgb 11.7 L Hct 34.1 L MCV 92.9 MCH 31.9 MCHC 34.3 RDW Std Deviation 46.6 H RDW Coeff of Donell 13.7 Plt Count 214 MPV 10.5 Immature Gran % (Auto) Neut % (Auto) Lymph % (Auto) [place] % (Auto) Eos % (Auto) Baso % (Auto) Neut # (Auto) Lymph # (Auto) [place] # (Auto) Eos # (Auto) Baso # (Auto) Immature Gran # (Auto) Sodium 135 L Potassium 3.8 Chloride 107 Carbon Dioxide 21 Anion Gap 7 BUN 10 Creatinine 0.54 L Est Cr Clr Drug Dosing 186.0 Est GFR ( Amer) 141.7 Est GFR (Non-Af Amer) 122.3 BUN/Creatinine Ratio 18.5 Glucose 89 POC Glucose Lactate Calcium 8.6 Total Bilirubin 0.3 AST 13 ALT 12 Alkaline Phosphatase 107 H Total Protein 6.5 Albumin 3.3 L Globulin 3.2 Albumin/Globulin Ratio 1.0 Urine Color Urine Appearance Urine pH Ur Specific [place] Urine Protein Urine Glucose (UA) Urine Ketones Urine Blood Urine Nitrite Urine Bilirubin Urine Urobilinogen Ur Leukocyte Esterase Urine RBC Urine WBC Ur Epithelial Cells Urine Bacteria Blood Type A Positive Antibody Screen NEGATIVE 12/12/22 12/12/22 12/12/22 12:16 16:48 20:54 WBC RBC Hgb Hct MCV MCH MCHC RDW Std Deviation RDW Coeff of Donell Plt Count MPV Immature Gran % (Auto) Neut % (Auto) Lymph % (Auto) [place] % (Auto) Eos % (Auto) Baso % (Auto) Neut # (Auto) Lymph # (Auto) [place] # (Auto) Eos # (Auto) Baso # (Auto) Immature Gran # (Auto) Sodium Potassium Chloride Carbon Dioxide Anion Gap BUN Creatinine Est Cr Clr Drug Dosing Est GFR ( Amer) Est GFR (Non-Af Amer) BUN/Creatinine Ratio Glucose POC Glucose 116 H 88 96 Lactate Calcium Total Bilirubin AST ALT Alkaline Phosphatase Total Protein Albumin Globulin Albumin/Globulin Ratio Urine Color Urine Appearance Urine pH Ur Specific [place] Urine Protein Urine Glucose (UA) Urine Ketones Urine Blood Urine Nitrite Urine Bilirubin Urine Urobilinogen Ur Leukocyte Esterase Urine RBC Urine WBC Ur Epithelial Cells Urine Bacteria Blood Type Antibody Screen 12/13/22 12/14/22 12/14/22 21:09 16:37 16:37 WBC 9.91 RBC 3.43 L Hgb 10.9 L Hct 32.8 L MCV 95.6 MCH 31.8 MCHC 33.2 RDW Std Deviation 48.0 H RDW Coeff of Donell 13.6 Plt Count 170 MPV 10.6 Immature Gran % (Auto) 0.5 Neut % (Auto) 85.8 Lymph % (Auto) 9.6 [place] % (Auto) 3.9 Eos % (Auto) 0.1 Baso % (Auto) 0.1 Neut # (Auto) 8.50 H Lymph # (Auto) 0.95 L [place] # (Auto) 0.39 Eos # (Auto) 0.01 Baso # (Auto) 0.01 Immature Gran # (Auto) 0.05 Sodium Potassium Chloride Carbon Dioxide Anion Gap BUN Creatinine Est Cr Clr Drug Dosing Est GFR ( Amer) Est GFR (Non-Af Amer) BUN/Creatinine Ratio Glucose POC Glucose 103 H Lactate 1.0 Calcium Total Bilirubin AST ALT Alkaline Phosphatase Total Protein Albumin Globulin Albumin/Globulin Ratio Urine Color Urine Appearance Urine pH Ur Specific [place] Urine Protein Urine Glucose (UA) Urine Ketones Urine Blood Urine Nitrite Urine Bilirubin Urine Urobilinogen Ur Leukocyte Esterase Urine RBC Urine WBC Ur Epithelial Cells Urine Bacteria Blood Type Antibody Screen 12/15/22 12/15/22 12/15/22 01:45 05:54 05:54 WBC 6.88 RBC 3.20 L Hgb 10.1 L Hct 31.1 L MCV 97.2 MCH 31.6 MCHC 32.5 RDW Std Deviation 49.5 H RDW Coeff of Donell 14.0 Plt Count 138 MPV 10.8 Immature Gran % (Auto) 0.6 Neut % (Auto) 65.9 Lymph % (Auto) 25.0 [place] % (Auto) 8.0 Eos % (Auto) 0.4 Baso % (Auto) 0.1 Neut # (Auto) 4.53 Lymph # (Auto) 1.72 [place] # (Auto) 0.55 Eos # (Auto) 0.03 Baso # (Auto) 0.01 Immature Gran # (Auto) 0.04 Sodium 138 Potassium 4.0 Chloride 109 H Carbon Dioxide 23 Anion Gap 6 BUN 7 Creatinine 0.51 L Est Cr Clr Drug Dosing 197.0 Est GFR ( Amer) 144.4 Est GFR (Non-Af Amer) 124.6 BUN/Creatinine Ratio 13.7 Glucose 129 H POC Glucose Lactate Calcium 8.1 L Total Bilirubin 0.2 AST 15 ALT 13 Alkaline Phosphatase 75 Total Protein 5.2 L Albumin 2.7 L Globulin 2.5 Albumin/Globulin Ratio 1.1 Urine Color Red Urine Appearance Cloudy A Urine pH 6.5 Ur Specific [place] 1.025 Urine Protein 3+ H Urine Glucose (UA) Negative Urine Ketones Negative Urine Blood 3+ H Urine Nitrite Negative Urine Bilirubin Negative Urine Urobilinogen Negative Ur Leukocyte Esterase 1+ H Urine RBC >30 H Urine WBC >30 H Ur Epithelial Cells 10-20 H Urine Bacteria Negative Blood Type Antibody Screen 12/15/22 05:57 WBC RBC Hgb Hct MCV MCH MCHC RDW Std Deviation RDW Coeff of Donell Plt Count MPV Immature Gran % (Auto) Neut % (Auto) Lymph % (Auto) [place] % (Auto) Eos % (Auto) Baso % (Auto) Neut # (Auto) Lymph # (Auto) [place] # (Auto) Eos # (Auto) Baso # (Auto) Immature Gran # (Auto) Sodium Potassium Chloride Carbon Dioxide Anion Gap BUN Creatinine Est Cr Clr Drug Dosing Est GFR ( Amer) Est GFR (Non-Af Amer) BUN/Creatinine Ratio Glucose POC Glucose Lactate 1.0 Calcium Total Bilirubin AST ALT Alkaline Phosphatase Total Protein Albumin Globulin Albumin/Globulin Ratio Urine Color Urine Appearance Urine pH Ur Specific [place] Urine Protein Urine Glucose (UA) Urine Ketones Urine Blood Urine Nitrite Urine Bilirubin Urine Urobilinogen Ur Leukocyte Esterase Urine RBC Urine WBC Ur Epithelial Cells Urine Bacteria Blood Type Antibody Screen
[2022-12-15] MEDS ORDERED: bisacodyL 5 MG TABEC PO SCH (20:00)
[2022-12-16] MEDS: CLINDAMYCIN/D5W 900 MG/50 ML BAG IV SCH (00:49)
[2022-12-16] MEDS: GENTAMICIN SULFATE 550 MG in DEXTROSE 5% 100 ML IV SCH (01:28)
[2022-12-16] MEDS: IBUPROFEN 600 MG TAB PO PRN ×2 (03:12→08:33)
[2022-12-16] MEDS: oxyCODONE/ACETAMINOPHEN 5mg/325mg TAB PO PRN ×2 (03:13→08:34)
[2022-12-16 06:51] LABS: Hemoglobin 9.8 g/dl (12.0-16.0)
[2022-12-16] MEDS: PRENATAL VITAMIN 1 TAB PO SCH (08:33)
[2022-12-16] MEDS: LABETALOL HCL 100 MG TAB PO SCH (08:33)
[2022-12-16] MEDS: FERROUS SULFATE 325 MG TAB PO SCH (08:33)
[2022-12-16] MEDS: DOCUSATE SODIUM 100 MG CAP PO SCH (08:33)
== END 2022-12-16 12:50 | disposition home or self-care (01) | DRG 806 ==
LOC: 4S1 07:45 → 4E2 12-14 06:41